=== PATIENT | male | born 1980 | race Caucasian/White ===

== ENCOUNTER → 2020-07-19 | Outpatient (CLI) | payer OTHER ==
[~2020-07-19] MED LIST: NAPROSYN500 MG PO
[2020-07-19 10:17] LABS: HEMOGLOBIN 15.6 gm/dl (14.0-17.5); RED BLOOD COUNT 5.4 M/UL (4.20-5.50); WHITE BLOOD COUNT 6.6 K/UL (4.5-11.0)
[2020-07-19 10:43] LABS: BUN/CREATININE RATIO 9 (0-10)
== END ==
LOC: OPSV2 09:25
PROVIDERS: Orthopaedic Surgery
DX: Z01.818 Encounter for other preprocedural examination (principal); M20.001 Unspecified deformity of right finger(s); M19.041 Primary osteoarthritis, right hand; R93.41 Abnormal radiologic findings on diagnostic imaging of renal pelvis, ureter, or bladder
CPT/HCPCS: 36415; 71046; 80048; 85025; 93005

== ENCOUNTER → 2020-07-23 | Day surgery (SDC) | payer OTHER ==
[~2020-07-23] VITALS: Ht 167.6 cm; Wt 87.5 kg
== END | disposition home or self-care (01) ==
LOC: OR 07:45
DX: M19.141 Post-traumatic osteoarthritis, right hand (principal); M20.001 Unspecified deformity of right finger(s); Z87.442 Personal history of urinary calculi
CPT/HCPCS: 73130; 73140; 76000; C1713; J0690; J1100; J1885; J2001; J2250; J2405; J2704; J3010; J7120

== ENCOUNTER 2021-02-24 11:58 | Emergency (ER) | payer OTHER | END 2021-02-24 12:53 | disposition left against medical advice (07) | LOC: ER1 11:58 | DX: R07.9 Chest pain, unspecified (principal) | CPT/HCPCS: 99284 ==